=== PATIENT | female | born 1940 | race Caucasian/White ===

== ENCOUNTER 2020-10-16 08:05 | Emergency (ER) | payer MEDICARE ==
[~2020-10-16] VITALS: Ht 167.6 cm; Wt 45.0 kg
--- NOTE | 2020-10-16 08:21 | NUR ---
DR. BO AT BEDSIDE FOR EVALUATION.
--- NOTE | 2020-10-16 08:29 | NUR ---
PT ATTACHED TO ALL MONITORS, VSS, NADN. PT STATES SHE CURRENTLY IS HAVING NO PAIN. DIFFICULT TO GET FULL MEDICAL HISTORY FROM PT R/T BASLINE ORIENTATION. PT GIVEN WARM BLANKETS. WILL CONTIUE TO MONITOR.
--- NOTE | 2020-10-16 08:34 | NUR ---
SON LAURIE OSBORN, . REPORTS PT HAS HX OF DEMENTIA AND 20 LB WEIGHT LOSS IN LAST YEAR.
[2020-10-16 09:19] LABS: BASOPHILS % (AUTO) 1 % (0-1); EOSINOPHILS % (AUTO) 1 % (1-7); LYMPHOCYTES % (AUTO) 15 % (22-44); MEAN CORPUSCULAR HEMOGLOBIN 31.9 pg (27.0-34.8); MEAN PLATELET VOLUME 8.8 fL (7.4-10.4); MONOCYTES % (AUTO) 7 % (2-9); NEUTROPHILS % (AUTO) 77 % (42-75); PLATELET COUNT 232 x10^3/uL (130-400); RED BLOOD COUNT 3.39 x10^6/uL (3.82-5.3); RED CELL DISTRIBUTION WIDTH 12.9 % (9.6-15.2)
--- NOTE | 2020-10-16 09:21 | NUR ---
UA COLLECTED VIA STRAIGHT CATH.
[2020-10-16 09:30] LABS: MD NO
[2020-10-16 09:35] LABS: ALANINE AMINOTRANSFERASE 17 U/L (12-78); ALBUMIN 2.9 g/dL (3.4-5.0); ANION GAP 5 mmol/L (5-15); CALCIUM 8.6 mg/dL (8.5-10.1); CHLORIDE 110 mmol/L (98-107); CREATININE 0.47 mg/dL (0.55-1.02)
--- NOTE | 2020-10-16 09:36 | NUR ---
PT UPSET, CONFUSED, AND CRYING OUT. PT STATING "MY SON LEFT ME HERE TO , PLEASE DON'T LEAVE ME HERE TO " AND "IM FREEZING TO ". PT REASSURED AND GIVEN MULTIPLE WARM BLANENTS. ATTEMPTS AT REORIENTAION MADE, HOWEVER PT IS NOT ABLE TO BE REORIENTED. POSTIONED TO COMFORT. VSS.
[2020-10-16 09:38] LABS: ALKALINE PHOSPHATASE 88 U/L (45-117); BILIRUBIN,TOTAL 0.3 mg/dL (0.2-1.0); TOTAL PROTEIN 5.8 g/dL (6.4-8.2)
[2020-10-16 09:47] LABS: MICROSCOPIC AUTO
[2020-10-16] MEDS ORDERED: FURO40TA6 PO (09:47)
[2020-10-16] MEDS ORDERED: TRAM50TA2 PO (09:47)
[2020-10-16] MEDS ORDERED: LEVO88CA4 PO (09:47)
[2020-10-16] MEDS ORDERED: CARB15DR3 EACHEYE (09:47)
[2020-10-16] MEDS ORDERED: LOPE1LIQ6 PO (09:47)
[2020-10-16] MEDS ORDERED: POTA1POW11 PO (09:47)
[2020-10-16] MEDS ORDERED: MELA1TAB PO (09:47)
[2020-10-16] MEDS ORDERED: ESCI10TA97 PO (09:47)
[2020-10-16] MEDS ORDERED: DIVA125C2 PO (09:47)
[2020-10-16] MEDS ORDERED: LORA0.5P PO (09:47)
[2020-10-16] MEDS ORDERED: MIRT7.5T8 PO (09:47)
[2020-10-16] MEDS ORDERED: QUET25TA7 PO (09:47)
[2020-10-16] MEDS ORDERED: MIDO2.5T PO (09:47)
--- NOTE | 2020-10-16 09:49 | NUR ---
PT TO IMAGING.
[2020-10-16] MEDS ORDERED: ACETAMINOPHEN 500 MG TABLET PO ONE (10:00)
[2020-10-16] MEDS ORDERED: ACETAMINOPHEN 500 MG TABLET ONE (10:01)
--- NOTE | 2020-10-16 10:09 | NUR ---
DR. GU AT BEDSIDE FOR EVALUATION. PT MEDICATED PER EMAR. DRANK 1 ORANGE JUICE. VSS.
--- NOTE | 2020-10-16 10:26 | NUR ---
PT ABLE TO BEAR WEIGHT BUT ABLE TO AMULATE WITH ASSISTANCE OF WALKER. WILL ATTEMPT TO AMUBLATE AGAIN WHEN PT FULLY MEDICATED WITH TYLENOL. RENETTA WALKER AT BEDSIDE TO COMFORT AND REORIENT PT.
[2020-10-16] MEDS ORDERED: PLEASE ENTER ALLERGIES MC SCH (10:30)
--- NOTE | 2020-10-16 10:57 | NUR ---
Pt able to walk with walker unassisted. Sat down on commode said "oh, not on my bare butt," because it was too cold and immediately stood back up without assistance. ERP updated. Pt states "I don't know" when asking about her leg pain.
[2020-10-16] MEDS ORDERED: NEOSPORIN OINT. PKT 1 PACKET ONE (11:03)
--- NOTE | 2020-10-16 11:33 | NUR ---
This RN remains at bedside to offer pt comfort, as she is crying, asking to go home, stating she doesn't want to be alone.
[2020-10-16] MEDS ORDERED: LORazepam 2 MG/ML, 1ML ONE ×2 (12:06→13:21)
--- NOTE | 2020-10-16 12:11 | NUR ---
PT TO MRI, MEDICATED PER EMAR.
[2020-10-16] MEDS ORDERED: HALOPERIDOL 5 MG/ML ONE (12:32)
--- NOTE | 2020-10-16 12:57 | NUR ---
Pt back from imaging. Sleeping. Respirations even and unlabored, 97% on 2L.
--- NOTE | 2020-10-16 12:59 | NUR ---
PT IN MRI, WAS MEDICATED PER EMAR BEFORE LEAVING. PT BECAME AGIATED DURING MRI, SHAKING AND ATTEMPTING TO LEAVE TABLE. THIS RN WENT TO MRI AND MEDICATED PT AGAIN PER EMAR.
[2020-10-16] MEDS ORDERED: HALOPERIDOL 5 MG/ML IV ONE (13:00)
[2020-10-16] MEDS ORDERED: LORazepam 2 MG/ML, 1ML IVPush ONE ×2 (13:00→13:30)
--- NOTE | 2020-10-16 13:14 | NUR ---
THIS RN SPOKE WITH SON ANURAG SULLIVAN, SON STATES MOTHER IS A DNR. PT'S SON WILL BE LOOKING FOR PTS ADVANCED DIRECTIVE.
--- NOTE | 2020-10-16 13:44 | NUR ---
PT TO CT
--- NOTE | 2020-10-16 13:58 | NUR ---
pt back from ct. resting in bed. vss. gaspar.
--- NOTE | 2020-10-16 14:03 | NUR ---
PT ATTEMPTING TO GET OUT OF BED. PT REORIENTED AND REPOSTIONED IN BED TO COMFORT AND GIVEN MORE WARM BLANETS.
--- NOTE | 2020-10-16 14:19 | NUR ---
PT MAKING MULTIPLE ATTEMPTS AT LEAVING BED DESPITE REORIENTATION AND REPOSTIONING.
--- NOTE | 2020-10-16 14:50 | NUR ---
PT SITTING UP IN BED EATING LUNCH TRAY
--- NOTE | 2020-10-16 15:10 | NUR ---
Preceptor RN: pt has eaten pudding and salad from her meal with assist and taken some PO fluids. well tolerated. pt needs freqest re-orientation. pt positioning for comfort. lights dimmed per request. awaiting D/C plan
--- NOTE | 2020-10-16 15:37 | NUR ---
pt resting in bed with sitter at bedside. vss. nadn. pt to d/c w/ [facility] at 1800. will contiune to monitor.
--- NOTE | 2020-10-16 15:48 | NUR ---
report called to Ashley at [facility]. [facility] at 1800.
--- NOTE | 2020-10-16 16:26 | NUR ---
PT IN BED, SITTER AT BEDSIDE REORIENTING PATIENT, VSS
--- NOTE | 2020-10-16 17:37 | NUR ---
pt asleep. nadn. respirations even and unlabored. sitter at bedside.
[2020-10-16 18:18] VITALS: BP 112/47
--- NOTE | 2020-10-16 18:21 | NUR ---
Patient/Caregiver given discharge instructions. pt left via wheelchair and [facility] with all belongings.
== END 2020-10-16 18:21 | disposition home or self-care (01) ==
LOC: ED 09:48
DX: S72.112A Displaced fracture of greater trochanter of left femur, initial encounter for closed fracture (principal); S70.02XA Contusion of left hip, initial encounter; S50.811A Abrasion of right forearm, initial encounter; I95.9 Hypotension, unspecified; E03.9 Hypothyroidism, unspecified; Z79.899 Other long term (current) drug therapy; W18.39XA Other fall on same level, initial encounter; Y93.89 Activity, other specified; Y92.89 Other specified places as the place of occurrence of the external cause; Y99.8 Other external cause status
CPT/HCPCS: 36415; 73502; 73700; 80053; 81001; 85025; 93005; 96374; 96375; 96376; 99285; J1630; J2060